=== PATIENT | male | born 1995 | race African-American/Black ===

== ENCOUNTER 2016-10-21 13:50 | Emergency (ER) | payer OTHER ==
[~2016-10-21] VITALS: Ht 170.2 cm; Wt 65.9 kg
[2016-10-21 15:03] LABS: EOSINOPHILS % (AUTO) 0.1 % (1.0-6.0); HEMATOCRIT 49.2 % (41-53); HEMOGLOBIN 15.7 g/dL (13.5-17.5); LYMPHOCYTES # (AUTO) 0.3 K/uL (1.0-4.8); LYMPHOCYTES % (AUTO) 2.7 % (22.0-44.0); MEAN CORPUSCULAR HEMOGLOBIN 26.6 pg (26.0-34.0); MEAN CORPUSCULAR VOLUME 83 fL (80-100); MONOCYTES % (AUTO) 10.1 % (2.0-9.0); NEUTROPHILS # (AUTO) 8.6 K/uL (1.8-7.7); PLATELET COUNT (AUTO) 256 K/uL (150-450); RED BLOOD CELL COUNT(AUTO) 5.93 MIL/uL (4.50-5.90); RED CELL DISTRIBUTION WIDTH 12.9 % (11.5-14.5); WHITE BLOOD COUNT (AUTO) 9.9 K/uL (4.5-11.0)
[2016-10-21 15:07] LABS: ANION GAP 9 mmol/L (8-16); CALCIUM, TOTAL 9.3 mg/dL (8.8-10.5); CARBON DIOXIDE 30 mmol/L (22-29); CHLORIDE 104 mmol/L (98-107); CREATININE 1.26 mg/dL (0.60-1.30); GLOMERULAR FILTR. RATE CALC > 60 mL/min (>60); POTASSIUM 4.1 mmol/L (3.5-5.1); SODIUM SERUM 143 mmol/L (136-145); UREA NITROGEN, BLOOD 20 mg/dL (7-18)
[2016-10-21 15:08] LABS: NEUTROPHILS % (AUTO) 87.1 % (40.0-70.0)
[2016-10-21 15:13] LABS: ALANINE AMINOTRANSFERASE 30 U/L (12-78); ALBUMIN 4.3 g/dL (3.4-5.0); ASPARTATE AMINOTRANSFERASE 26 U/L (15-37); BILIRUBIN,TOTAL 2.4 mg/dL (0.1-1.0); TOTAL PROTEIN, SERUM 7.5 g/dL (6.4-8.2)
[2016-10-21] MEDS ORDERED: KETOROLAC TROMETHAMINE 30 MG/ML VIAL IVP ONE (17:15)
[2016-10-21] MEDS ORDERED: ONDANSETRON HCL 4 MG/2 ML VIAL IVP ONE (17:15)
[2016-10-21] MEDS ORDERED: SODIUM CHLORIDE 0.9% 1,000 ML IV ONE ×2 (17:30)
[2016-10-21 19:33] VITALS: BP 116/65
== END 2016-10-21 19:40 | disposition home or self-care (01) ==
LOC: EMS 13:54
DX: R11.2 Nausea with vomiting, unspecified (principal); F12.90 Cannabis use, unspecified, uncomplicated
CPT/HCPCS: 36415; 80053; 80307; 83690; 85025; 96361; 96374; 96375; 99284; J1885; J2405; J7030

== ENCOUNTER 2016-10-24 14:15 | Emergency (ER) | payer OTHER ==
[~2016-10-24] VITALS: Ht 170.2 cm; Wt 65.9 kg
[2016-10-24 16:09] VITALS: BP 112/65
[2016-10-25] MEDS ORDERED: ONDA4 PO (12:16)
== END 2016-10-24 16:11 | disposition home or self-care (01) ==
LOC: EMS 14:16
DX: R11.0 Nausea (principal); F12.10 Cannabis abuse, uncomplicated
CPT/HCPCS: 99283

== ENCOUNTER 2016-10-25 11:45 | Emergency (ER) | payer OTHER ==
[~2016-10-25] VITALS: Ht 170.2 cm; Wt 65.5 kg
[2016-10-25] MEDS ORDERED: ONDA4 PO (12:16)
[2016-10-25 13:09] LABS: BASOPHILS % (AUTO) 0.4 % (0.0-2.0); HEMATOCRIT 43.4 % (41-53); HEMOGLOBIN 13.8 g/dL (13.5-17.5); LYMPHOCYTES # (AUTO) 2.1 K/uL (1.0-4.8); LYMPHOCYTES % (AUTO) 48.3 % (22.0-44.0); MEAN CORPUSCULAR HEMOGLOBIN 26.2 pg (26.0-34.0); MEAN CORPUSCULAR HGB CONC 31.9 G/dL (31.0-37.0); MEAN CORPUSCULAR VOLUME 82 fL (80-100); MONOCYTES # (AUTO) 0.4 K/uL (0.1-1.0); MONOCYTES % (AUTO) 9.1 % (2.0-9.0); NEUTROPHILS # (AUTO) 1.8 K/uL (1.8-7.7); NEUTROPHILS % (AUTO) 41.2 % (40.0-70.0); PLATELET COUNT (AUTO) 248 K/uL (150-450); RED BLOOD CELL COUNT(AUTO) 5.28 MIL/uL (4.50-5.90); RED CELL DISTRIBUTION WIDTH 13.1 % (11.5-14.5); WHITE BLOOD COUNT (AUTO) 4.4 K/uL (4.5-11.0)
[2016-10-25 13:14] LABS: ANION GAP 5 mmol/L (8-16); CALCIUM, TOTAL 8.7 mg/dL (8.8-10.5); CARBON DIOXIDE 30 mmol/L (22-29); CHLORIDE 105 mmol/L (98-107); CREATININE 1.14 mg/dL (0.60-1.30); GLOMERULAR FILTR. RATE CALC > 60 mL/min (>60); POTASSIUM 3.8 mmol/L (3.5-5.1); SODIUM SERUM 140 mmol/L (136-145); UREA NITROGEN, BLOOD 9 mg/dL (7-18)
[2016-10-25 13:20] LABS: ALANINE AMINOTRANSFERASE 28 U/L (12-78); ALBUMIN 3.8 g/dL (3.4-5.0); ASPARTATE AMINOTRANSFERASE 27 U/L (15-37); BILIRUBIN,TOTAL 1.1 mg/dL (0.1-1.0); TOTAL PROTEIN, SERUM 6.8 g/dL (6.4-8.2)
[2016-10-25 15:36] LABS: ADD UA MICROSCOPIC NO; APPEARANCE,URINE CLEAR (CLEAR); GLUCOSE, URINE (UA) NEGATIVE (NEGATIVE); KETONES,URINE 15 mg/dL (NEGATIVE); LEUKOCYTE ESTERASE ,URINE NEGATIVE (NEGATIVE); OCCULT BLOOD,URINE NEGATIVE (NEGATIVE); PH,URINE 6.5 (5.0-8.0); PROTEIN,URINE NEGATIVE (NEGATIVE)
[2016-10-25 15:47] VITALS: BP 115/58
[2016-10-25] MEDS ORDERED: IBUPROFEN 600 MG TABLET PO ONE (17:15)
[2016-10-25] MEDS ORDERED: MAGNESIUM CITRATE 300 ML ORAL SOLUTION PO ONE (17:15)
[2016-10-25] MEDS ORDERED: SODIUM PHOS/SODIUM BIPHOS 133 ML ENEMA PR ONE (17:15)
== END 2016-10-25 18:00 | disposition home or self-care (01) ==
LOC: EMS 11:46
DX: K59.00 Constipation, unspecified (principal)
CPT/HCPCS: 99284

== ENCOUNTER 2018-02-27 10:57 | Emergency (ER) | payer OTHER ==
[~2018-02-27] VITALS: Ht 170.2 cm; Wt 67.3 kg
[~2018-02-27 10:57] MED LIST: ONDA4 PO
[2018-02-27 12:42] VITALS: BP 111/72
== END 2018-02-27 12:43 | disposition home or self-care (01) ==
LOC: EMS 11:01
DX: R07.89 Other chest pain (principal); R06.02 Shortness of breath
CPT/HCPCS: 99281

== ENCOUNTER 2019-06-11 15:15 | Emergency (ER) | payer OTHER ==
[~2019-06-11] VITALS: Ht 167.6 cm; Wt 79.5 kg
[2019-06-11] MEDS ORDERED: LIDOCAINE 5% TRANSDERMAL PATCH TD ONE (16:00)
[2019-06-11 17:48] VITALS: BP 118/89
== END 2019-06-11 17:49 | disposition home or self-care (01) ==
LOC: EMS 15:16
DX: S20.212A Contusion of left front wall of thorax, initial encounter (principal); Y04.8XXA Assault by other bodily force, initial encounter; Y93.89 Activity, other specified; Y92.69 Other specified industrial and construction area as the place of occurrence of the external cause; Y99.8 Other external cause status
CPT/HCPCS: 71101

== ENCOUNTER 2019-11-28 19:01 | Emergency (ER) | payer OTHER ==
[~2019-11-28] VITALS: Ht 165.1 cm; Wt 75.0 kg
[2019-11-28 20:46] VITALS: BP 126/62
== END 2019-11-28 20:48 | disposition home or self-care (01) ==
LOC: EMS 19:05
DX: R07.81 Pleurodynia (principal)

== ENCOUNTER 2022-03-18 14:33 | Emergency (ER) | payer OTHER ==
[~2022-03-18] VITALS: Ht 165.1 cm; Wt 77.3 kg
[2022-03-18] MEDS ORDERED: ACETAMINOPHEN 500 MG TABLET PO ONE (15:00)
[2022-03-18] MEDS ORDERED: KETOROLAC TROMETHAMINE 30 MG/ML VIAL IVP ONE (15:00)
[2022-03-18 15:29] LABS: BASOPHILS % (AUTO) 0.5 % (0.0-2.0); EOSINOPHILS % (AUTO) 0.1 % (1.0-6.0); HEMATOCRIT 39.9 % (41-53); HEMOGLOBIN 13.1 g/dL (13.5-17.5); LYMPHOCYTES # (AUTO) 1.5 K/uL (1.0-4.8); LYMPHOCYTES % (AUTO) 30.6 % (22.0-44.0); MEAN CORPUSCULAR HEMOGLOBIN 27.5 pg (26.0-34.0); MEAN CORPUSCULAR HGB CONC 32.8 G/dL (31.0-37.0); MEAN CORPUSCULAR VOLUME 84 fL (80-100); MONOCYTES # (AUTO) 0.7 K/uL (0.1-1.0); NEUTROPHILS # (AUTO) 2.6 K/uL (1.8-7.7); NEUTROPHILS % (AUTO) 54.8 % (40.0-70.0); PLATELET COUNT (AUTO) 209 K/uL (150-450); RED BLOOD CELL COUNT(AUTO) 4.75 MIL/uL (4.50-5.90); RED CELL DISTRIBUTION WIDTH 13.7 % (11.5-14.5)
[2022-03-18 15:36] LABS: ANION GAP 6 mmol/L (8-16); CALCIUM, TOTAL 9.2 mg/dL (8.8-10.5); CARBON DIOXIDE 29 mmol/L (22-29); CHLORIDE 101 mmol/L (98-107); CREATININE 1.22 mg/dL (0.60-1.30); GLOMERULAR FILTR. RATE CALC > 60 mL/min (>60); GLUCOSE,RANDOM 93 mg/dL (70-110); POTASSIUM 3.9 mmol/L (3.5-5.1); SODIUM SERUM 136 mmol/L (136-145); UREA NITROGEN, BLOOD 6 mg/dL (7-18)
[2022-03-18] MEDS ORDERED: SODIUM CHLORIDE 0.9% 100 ML ONE (15:40)
[2022-03-18] MEDS ORDERED: IOHEXOL 350 MG/ML 100 ML VIAL ONE (15:41)
[2022-03-18 15:42] LABS: ALANINE AMINOTRANSFERASE 35 U/L (12-78); ALBUMIN 4.1 g/dL (3.4-5.0); ALKALINE PHOSPHATASE 69 U/L (46-116); ASPARTATE AMINOTRANSFERASE 26 U/L (15-37); BILIRUBIN,TOTAL 0.3 mg/dL (0.1-1.0); LIPASE 52 U/L (73-393); TOTAL PROTEIN, SERUM 6.8 g/dL (6.4-8.2)
[2022-03-18 16:40] LABS: APPEARANCE,URINE CLEAR (CLEAR); BILIRUBIN,URINE NEGATIVE (NEGATIVE); GLUCOSE, URINE (UA) NEGATIVE (NEGATIVE); KETONES,URINE NEGATIVE (NEGATIVE); LEUKOCYTE ESTERASE ,URINE NEGATIVE (NEGATIVE); NITRATE,URINE NEGATIVE (NEGATIVE); OCCULT BLOOD,URINE NEGATIVE (NEGATIVE); PH,URINE 5.5 (5.0-8.0); PROTEIN,URINE NEGATIVE (NEGATIVE); SPECIFIC GRAVITIY, URINE 1.006 (1.003-1.030); UROBILINOGEN,URINE <=1.0 mg/dL (<=1.0)
[2022-03-18] MEDS ORDERED: DOXYCYCLINE HYCLATE 100 MG TABLET PO ONE (17:15)
[2022-03-18 18:08] VITALS: BP 113/61
[2022-03-18] MEDS ORDERED: DOXY-354 PO (18:19)
== END 2022-03-18 18:30 | disposition left against medical advice (07) ==
LOC: EMS 14:33
DX: L02.214 Cutaneous abscess of groin (principal); F10.20 Alcohol dependence, uncomplicated
CPT/HCPCS: 99285; 74177; 96374; 80053; 81003; 83690; 85025; 36415; 76870; J1885; Q9967; J7050

== ENCOUNTER 2024-07-04 00:49 | Emergency (ER) | payer OTHER ==
[~2024-07-04] VITALS: Ht 170.2 cm; Wt 63.6 kg
[~2024-07-04 00:49] MED LIST changes: +DOXY-354 PO; -ONDA4 PO
[2024-07-04 00:52] VITALS: TEMP 98.4
[2024-07-04] MEDS: PERTUSS(ACELL),DIPH,TET/PF 0.5 ML SYRINGE [ADULT] IM. ONE (01:19)
[2024-07-04] MEDS: ACETAMINOPHEN 325 MG TABLET PO ONE (02:05)
[2024-07-04] MEDS: LIDOCAINE 1% 10 ML VIAL SQ ONE (02:05)
[2024-07-04] MEDS: BACITRACIN 0.9 GM PACKET OINTMENT TP ONE (02:30)
[2024-07-04 02:56] VITALS: BP 114/67; PULSE 82; RESP 18; O2SAT 100
== END 2024-07-04 03:47 | disposition home or self-care (01) ==
LOC: EMS 00:49
DX: S00.83XA Contusion of other part of head, initial encounter (principal); R07.81 Pleurodynia
CPT/HCPCS: 99284; 70450; 71101; 73130; 70486; 72125; 12011; J3490

== ENCOUNTER 2024-07-14 21:29 | Emergency (ER) | payer OTHER ==
[~2024-07-14] VITALS: Ht 172.7 cm; Wt 77.3 kg
[2024-07-14 21:48] VITALS: BP 121/101; PULSE 78; RESP 16; TEMP 98.7; O2SAT 100
== END 2024-07-15 00:51 | disposition home or self-care (01) ==
LOC: EMS 21:29
DX: S00.80XD Unspecified superficial injury of other part of head, subsequent encounter (principal); M25.562 Pain in left knee; M79.642 Pain in left hand; X58.XXXD Exposure to other specified factors, subsequent encounter
CPT/HCPCS: 99284; 73130-TC; 73564-TC; Z7502

== ENCOUNTER 2024-09-11 10:13 | Emergency (ER) | payer OTHER ==
[~2024-09-11] VITALS: Ht 170.2 cm; Wt 75.0 kg
[2024-09-11 10:24] VITALS: BP 121/67; PULSE 68; RESP 18; TEMP 98.8; O2SAT 98
[2024-09-11 10:46] LABS: COVID AG,FIA SOURCE NASAL SWAB
[2024-09-11 11:12] LABS: SARS-COV2 (COVID) ANTIGEN,FIA Negative (Negative)
[2024-09-11 11:13] LABS: INFLUENZA TYPE B NEGATIVE FOR TYPE B (NEGATIVE)
[2024-09-11 11:29] LABS: INFLUENZA TYPE A POSITIVE FOR TYPE A (NEGATIVE)
== END 2024-09-11 11:59 | disposition left against medical advice (07) ==
LOC: EMS 10:13
DX: R53.81 Other malaise (principal); M79.671 Pain in right foot; R09.81 Nasal congestion; Z53.21 Procedure and treatment not carried out due to patient leaving prior to being seen by health care provider; Z20.822 Contact with and (suspected) exposure to COVID-19
CPT/HCPCS: 87804

== ENCOUNTER 2025-03-13 08:28 | Emergency (ER) | payer MEDICAID ==
[~2025-03-13] VITALS: Ht 170.2 cm; Wt 69.1 kg
[~2025-03-13 08:28] MED LIST changes: -DOXY-354 PO; +IBUP-1492 PO
[2025-03-13 08:37] VITALS: BP 121/59; PULSE 54; RESP 16; TEMP 97.9; O2SAT 99
[2025-03-13] MEDS ORDERED: FLUORESCEIN SODIUM 1 MG STRIP ONE (09:22)
[2025-03-13] MEDS: SULFACETAMIDE SODIUM 10% 15 ML OPHTHALMIC SOLUTION OS ONE (10:14)
== END 2025-03-13 10:14 | disposition home or self-care (01) ==
LOC: EMS 08:28
DX: S05.02XA Injury of conjunctiva and corneal abrasion without foreign body, left eye, initial encounter (principal); X58.XXXA Exposure to other specified factors, initial encounter; Y93.89 Activity, other specified; Y92.89 Other specified places as the place of occurrence of the external cause; Y99.8 Other external cause status
CPT/HCPCS: 99283